=== PATIENT | female | born 1950 | race Asian ===

== ENCOUNTER 2018-11-26 10:49 | Outpatient (CLI) | payer OTHER, MEDICARE ==
[2018-11-26 12:10] LABS: Hematocrit 40.2 % (30.3-42.9); Hemoglobin 13.6 gm/dl (10.1-14.3); Mean Corpuscular HGB Conc 34 % (30-34); Mean Corpuscular Volume 87 fl (79-97); Platelet Count 252 K/mm3 (140-440); Red Blood Count 4.64 M/mm3 (3.65-5.03); Red Cell Distribution Width 13.2 % (13.2-15.2)
[2018-11-26 12:30] LABS: Alanine Aminotransferase 15 units/L (7-56); Albumin 4.3 g/dL (3.9-5); BUN/Creatinine Ratio 27; Blood Urea Nitrogen 16 mg/dL (7-17); Calcium 9.5 mg/dL (8.4-10.2); Chol/HDL Ratio 5.23 %; HDL Cholesterol 51 mg/dL (40-59); Hemolysis Index 0; LDL Cholesterol,Direct 209 mg/dL (50-130)
[2018-12-03 06:23] LABS: Vitamin D, 25-OH, D2 SEE SCANNED RESULT
== END 2018-11-26 10:50 | disposition home or self-care (01) ==
LOC: LAB 10:49
PROVIDERS: ATTEND Internal Medicine
DX: E78.2 Mixed hyperlipidemia (principal); I10 Essential (primary) hypertension; E66.09 Other obesity due to excess calories; I49.9 Cardiac arrhythmia, unspecified; R73.9 Hyperglycemia, unspecified
CPT/HCPCS: 36415; 80053; 80061; 82306; 82607; 83036; 84443; 85027